=== PATIENT | male | born 1980 | race Caucasian/White ===

== ENCOUNTER 2023-08-07 17:35 | Emergency (ER) | payer MEDICARE, OTHER ==
[~2023-08-07] VITALS: Ht 175.3 cm; Wt 76.4 kg
[2023-08-07] MEDS ORDERED: PROPRANOLOL HCL10 MG PO (17:54)
[2023-08-07] MEDS ORDERED: DIVALPROEX SOD500 M1 PO (17:54)
[2023-08-07] MEDS ORDERED: LOPERAMIDE HCL 2 MG CAP PO ONE (18:15)
[2023-08-07] MEDS ORDERED: SODIUM CHLORIDE 0.9% 1,000 ML IV ONE (18:15)
[2023-08-07] MEDS ORDERED: ondansetron HCL 4 MG/2 ML VIAL IV ONE (18:15)
[2023-08-07 19:07] LABS: BASOPHILS 0.5 % (0-2); EOSINOPHILS 0.5 % (0-6); HEMATOCRIT 47.9 % (35.0-50.0); HEMOGLOBIN 16.5 g/dL (12.0-18.0); LYMPHOCYTES 14.1 % (24-44); MCH 30.8 (27-36); MCHC 34.6 g/dl (30-36); MONOCYTES 17.2 % (0-12); NEUTROPHILS 67.7 % (39-80); PLATELET COUNT 225 K/uL (140-440); RBC 5.38 M/ul (4.3-5.7); RDW 13.5 (10.5-15.0)
[2023-08-07] MEDS ORDERED: ONDANSETRON ODT8 MG PO (19:20)
[2023-08-07 19:22] LABS: ALBUMIN 3.6 g/dL (3.4-5.0); ALBUMIN/GLOBULIN RATIO 0.9 (1.1-2.4); ANION GAP 15.3 (7-21); BILIRUBIN, TOTAL 0.8 ng/dL (0.2-1.0); BUN/CREATININE RATIO 16.5 (6.0-28.6); CALCIUM 9.2 mg/dL (8.5-10.1); CREATININE, SERUM 1.03 mg/dL (0.70-1.30); POTASSIUM 3.3 mmol/L (3.5-5.1); PROTEIN, TOTAL 7.6 g/dL (6.4-8.2)
[2023-08-07] MEDS ORDERED: ONDANSETRON 4 MG HOME.PACK SL ONE (19:45)
[2023-08-07 19:50] VITALS: BP 129/89
== END 2023-08-07 19:50 | disposition home or self-care (01) ==
LOC: ED 17:35
PROVIDERS: Emergency Medicine
DX: K52.9 Noninfective gastroenteritis and colitis, unspecified (principal); Z79.899 Other long term (current) drug therapy
CPT/HCPCS: 36415; 80053; 85025; A9270; J2405; J7030